=== PATIENT | female | born 1980 | race American Indian/Alaskan Native ===

== ENCOUNTER 2017-03-31 05:23 | Emergency (ER) | payer SELFPAY ==
[2017-03-31] MEDS ORDERED: TESSALON PERLES PO ONE (07:18)
[2017-03-31] MEDS ORDERED: MOTRIN PO ONE (07:18)
--- NOTE | 2017-03-31 08:31 | XRay Report ---
ROUTINE CHEST, TWO VIEWS: HISTORY: Cough. The trachea, heart, mediastinal contour, lung valerio and bony thorax are unremarkable. IMPRESSION: Unremarkable chest x-ray.
--- NOTE | 2017-03-31 09:32 | Emergency Department Report ---
ED Shortness of Breath HPI - General Chief Complaint: Upper Respiratory Infection Stated Complaint: COLD SX Time Seen by Provider: 03/31/17 07:20 Source: patient Mode of arrival: Ambulatory Limitations: No Limitations - History of Present Illness Initial Comments: This is a 36-year-old female nontoxic, well nourished in appearance, no acute signs of distress presents to the ED with c/o of shortness of breathe, productive cough, nasal congestion, and rhinorrhea times one week. Patient also stated has intermittent chest pain and describes it as aching with level of 8/ 10. Patient denies chest pain radiating. Denies chest tightness. Patient stated she develops chest pain and shortness of breathe every time she starts to worry about things. Patient stated she also develops back pain with shortness of breathe. Patient describes productive cough as yellow mucus production. Patient denies any recent travels, long car rides, or recent hospital stays. Patient denies any calf pain or calf tenderness. Patient denies any chest pain, fever, chills, nausea, vomiting, headache, stiff neck, abdominal pain, pelvic pain. Patient denies any numbness or tingling. Patient denies any allergies or significant past medical history. MD Complaint: shortness of breath, cough, chest pain -: week(s) (1) Radiation: back Severity: mild Pain Scale: 8 Quality: aching Consistency: intermittent Improves With: nothing Worsens With: nothing Context: recent URI Associated Symptoms: chest pain (intermittent), sputum production Treatments Prior to Arrival: none - Related Data Previous Rx's Medication Instructions Recorded Last Taken Type ALBUTEROL Inhaler [ProAir HFA 2 puff IH QID PRN #1 inhalation 03/31/17 Unknown Rx Inhaler] Azithromycin [Zithromax Z-DAVID] 250 mg PO DAILY #6 tablet 03/31/17 Unknown Rx Benzonatate [Tessalon Perle] 100 mg PO Q6H PRN #20 capsule 03/31/17 Unknown Rx Ibuprofen [Motrin] 600 mg PO Q8H PRN #30 tablet 03/31/17 Unknown Rx predniSONE [Deltasone] 40 mg PO QDAY #5 tab 03/31/17 Unknown Rx Allergies Allergy/AdvReac Type Severity Reaction Status Date / Time gabapentin Allergy Unknown Verified 03/31/17 09:42 Penicillins Allergy Unknown Verified 03/31/17 09:42 ED Review of Systems ROS: Stated complaint: COLD SX Other details as noted in HPI Constitutional: denies: chills, fever Eyes: denies: eye pain, eye discharge, vision change ENT: denies: ear pain, throat pain Respiratory: cough, shortness of breath. denies: SOB with exertion, SOB at rest , wheezing Cardiovascular: chest pain. denies: palpitations Endocrine: no symptoms reported Gastrointestinal: denies: abdominal pain, nausea, diarrhea Genitourinary: denies: urgency, dysuria, discharge Musculoskeletal: back pain. denies: joint swelling, arthralgia Skin: denies: rash, lesions Neurological: denies: headache, weakness, paresthesias Psychiatric: denies: anxiety, depression Hematological/Lymphatic: denies: easy bleeding, easy bruising ED Past Medical Hx - Past Medical History Previous Medical History?: No - Surgical History Past Surgical History?: Yes Additional Surgical History: Brain and spinal surgery. - Social History Smoking Status: Never Smoker Substance Use Type: None - Medications Home Medications: Home Medications Medication Instructions Recorded Confirmed Last Taken Type ALBUTEROL Inhaler [ProAir HFA 2 puff IH QID PRN #1 inhalation 03/31/17 Unknown Rx Inhaler] Azithromycin [Zithromax Z-DAVID] 250 mg PO DAILY #6 tablet 03/31/17 Unknown Rx Benzonatate [Tessalon Perle] 100 mg PO Q6H PRN #20 capsule 03/31/17 Unknown Rx Ibuprofen [Motrin] 600 mg PO Q8H PRN #30 tablet 03/31/17 Unknown Rx predniSONE [Deltasone] 40 mg PO QDAY #5 tab 03/31/17 Unknown Rx ED Physical Exam - General Limitations: No Limitations General appearance: alert, in no apparent distress - Head Head exam: Present: atraumatic, normocephalic - Eye Eye exam: Present: normal appearance, PERRL, EOMI Pupils: Present: normal accommodation - ENT ENT exam: Present: normal exam, normal orophraynx, mucous membranes moist, TM's normal bilaterally, normal external ear exam - Neck Neck exam: Present: normal inspection, full ROM. Absent: tenderness, meningismus, lymphadenopathy, thyromegaly - Respiratory Respiratory exam: Present: normal lung sounds bilaterally, chest wall tenderness (midsternum). Absent: respiratory distress, wheezes, rales, rhonchi , stridor, accessory muscle use, decreased breath sounds, prolonged expiratory - Cardiovascular Cardiovascular Exam: Present: regular rate, normal rhythm, normal heart sounds. Absent: bradycardia, tachycardia, irregular rhythm, systolic murmur, diastolic murmur, rubs, gallop - GI/Abdominal GI/Abdominal exam: Present: soft, normal bowel sounds. Absent: distended, tenderness, guarding, rebound, rigid, diminished bowel sounds - Rectal Rectal exam: Present: deferred - Extremities Exam Extremities exam: Present: normal inspection, full ROM, normal capillary refill. Absent: tenderness, pedal edema, joint swelling, calf tenderness - Back Exam Back exam: Present: normal inspection, full ROM. Absent: tenderness, CVA tenderness (R), CVA tenderness (L), muscle spasm, paraspinal tenderness, vertebral tenderness, rash noted - Neurological Exam Neurological exam: Present: alert, oriented X3, CN II-XII intact, normal gait, reflexes normal - Psychiatric Psychiatric exam: Present: normal affect, normal mood - Skin Skin exam: Present: warm, dry, intact, normal color. Absent: rash ED Course Vital Signs 03/31/17 03/31/17 03/31/17 05:39 05:48 10:08 Temperature 99.0 F 99.0 F 98.2 F Pulse Rate 79 79 52 L Respiratory 16 20 Rate Blood Pressure 110/63 Blood Pressure 108/67 [Right] O2 Sat by Pulse 99 99 100 Oximetry - Reevaluation(s) Reevaluation #1: 03/31/17 09:30 Patient is speaking in full sentences with no signs of distress noted. ED Medical Decision Making - Lab Data Result diagrams: 03/31/17 10:08 03/31/17 10:08 - Medical Decision Making This is a 36-year-old female that presents with costochondritis, anxiety, and upper resp infection. Patient is stable and was examined by me. Chest xray has been obtained and dictated by radiologist with normal limits. Patient is notified of xray results with no questions noted. Labs obtained and unremarkable. EKG normal sinus rhythm with no st abnormalities. Wells criteria 0 points. No history/symptoms/signs of PE/DVT. Patient received Motrin and Tesslon perrl in the Ed which patient stated symptoms is improving and subsiding. Patient is discharged with zpak, motrin, prednisone, albuterol, and tesslone perrls. Patient was instructed to Follow-up with a primary care doctor in 3-5 days or if symptoms worsen and continue return to emergency room as soon as possible. At time of discharge, the patient does not seem toxic or ill in appearance. No acute signs of distress noted. Patient agrees to discharge treatment plan of care. No further questions noted by the patient. Critical care attestation.: If time is entered above; I have spent that time in minutes in the direct care of this critically ill patient, excluding procedure time. ED Disposition Clinical Impression: Costochondritis, Anxiety Upper respiratory infection Qualifiers: URI type: unspecified URI Qualified Code(s): J06.9 - Acute upper respiratory infection, unspecified Disposition: TO HOME OR SELFCARE Is pt being admited?: No Does the pt Need Aspirin: No Condition: Stable Instructions: Costochondritis (ED), Prednisone (By mouth), Albuterol (By mouth) , Anxiety (ED), Azithromycin (By mouth) Additional Instructions: Follow-up with a primary care doctor in 3-5 days or if symptoms worsen and continue return to emergency room as soon as possible. Increased rest, hydration, and take Motrin as prescribed during Fever episode. Prescriptions: ALBUTEROL Inhaler [ProAir HFA Inhaler] 2 puff IH QID PRN #1 inhalation PRN Reason: Shortness Of Breath Azithromycin [Zithromax Z-DAVID] 250 mg PO DAILY #6 tablet Benzonatate [Tessalon Perle] 100 mg PO Q6H PRN #20 capsule PRN Reason: Cough Ibuprofen [Motrin] 600 mg PO Q8H PRN #30 tablet PRN Reason: Pain predniSONE [Deltasone] 40 mg PO QDAY #5 tab Referrals: PRIMARY CARE, [Primary Care Provider] - 3-5 Days AVI ULLOA MD [Staff Physician] - 3-5 Days [facility] [Outside] - 3-5 Days [facility] [Outside] - 3-5 Days Forms: Work/School Release Form(ED)
[2017-03-31 10:09] VITALS: BP 108/67
[2017-03-31 10:29] LABS: Bilirubin,Urine NEG (Negative); Blood,Urine NEG (Negative); Color,Urine Yellow (Yellow); Mucus,Urine 3+ /HPF; Nitrite,Urine NEG (Negative); Protein,Urine <15 mg/dL mg/dL (Negative); Urobilinogen,Urine < 2.0 mg/dL (<2.0)
[2017-03-31 10:40] LABS: BUN/Creatinine Ratio 12; Blood Urea Nitrogen 7 mg/dL (7-17); Calcium 8.7 mg/dL (8.4-10.2); Hemolysis Index 22
[2017-03-31 10:46] LABS: Basophils % (Auto) 0.6 % (0.0-1.8); Eosinophils # (Auto) 0.1 K/mm3 (0.0-0.4); Hematocrit 39.1 % (30.3-42.9); Hemoglobin 12.5 gm/dl (10.1-14.3); Lymphocytes # (Auto) 1.4 K/mm3 (1.2-5.4); Lymphocytes % (Auto) 20.4 % (13.4-35.0); Mean Corpuscular HGB Conc 32 % (30-34); Mean Corpuscular Hemoglobin 28 pg (28-32); Mean Corpuscular Volume 88 fl (79-97); Monocytes # (Auto) 0.6 K/mm3 (0.0-0.8); Monocytes % (Auto) 8.3 % (0.0-7.3); Platelet Count 244 K/mm3 (140-440); Red Blood Count 4.42 M/mm3 (3.65-5.03); Red Cell Distribution Width 14.6 % (13.2-15.2)
== END 2017-03-31 11:34 | disposition home or self-care (01) ==
LOC: ED 05:23
DX: M94.0 Chondrocostal junction syndrome [Tietze] (principal); J06.9 Acute upper respiratory infection, unspecified; F41.9 Anxiety disorder, unspecified; Z88.0 Allergy status to penicillin; Z88.8 Allergy status to other drugs, medicaments and biological substances
CPT/HCPCS: 36415; 71046; 80048; 81001; 84484; 84703; 85025; 85379; 93005; 93010; 99284

== ENCOUNTER 2018-08-18 07:31 | Outpatient (CLI) | payer BC, MEDICAID ==
--- NOTE | 2018-08-18 10:30 | Fluoroscopy Report ---
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 FINDINGS: Informed consent was obtained. The patient was prepped and draped in sterile fashion. A spe culum was utilized to visualize the cervix. The cervix was cleaned 3 times. The cervix was cannulated with a small catheter and secured by balloon inflation. Multiple fluoroscopic images were obtained during the injection of 15 cc of Omnipaque 300. There is n ormal filling of the uterine cavity. No synechia or extrinsic compression. No congenital uterine malf ormation. There is normal filling and opacification of the left fallopian tubule. There is normal spillage of c ontrast into the left side of the pelvis. The interstitial, isthmic and ampullary portions of the right fallopian tubule are eventually visuali zed although there was slight delay in appearance. No convincing spillage of the contrast agent from the right fallopian tubule could be demonstrated. IMPRESSION: Normal uterine cavity and left fallopian tubule. There is delayed opacification of the right fallopian tubule and no convincing spillage into the righ t side of the pelvis suggesting distal fallopian tubule occlusion. Fluoroscopy time: 65 seconds Number of fluoroscopic images: 16 Signer Name: Jacob Bolden Jr, MD Signed: 08/18/2018 9:26 AM Workstation Name: [id number]
== END 2018-08-18 07:32 | disposition home or self-care (01) ==
LOC: FLUORO 07:31
PROVIDERS: ATTEND Obstetrics & Gynecology
DX: N97.1 Female infertility of tubal origin (principal); Z88.0 Allergy status to penicillin; Z79.899 Other long term (current) drug therapy; Z88.8 Allergy status to other drugs, medicaments and biological substances
CPT/HCPCS: 58340; 74740; Q9967